=== PATIENT | female | born 1980 | race African-American/Black ===

== ENCOUNTER 2025-05-23 12:43 | Outpatient (CLI) | payer BC, SELFPAY ==
--- OUTSIDE RECORDS SUMMARY | 2025-05-23 12:48 | XMS_ITS | Encounter Summary ---
Author Organization Healthcare Address [address] [place] [address] Care Team Providers Care Machine Setter Supervisor Name Role Phone Mynor Rangel MD Primary Care Provider [phone] Pcp, No Primary Care Provider Ekaterina Donovan APRN Primary Care Provider [phone] Encounter Details Date Type Department Care Team (Late st Contact Info) Description 09/25/2020 Orders Only External Location [address] [place] [phone] Provider, External Social History Tobacco Use Types Packs/Day Years Used Date Smoking Tobacco: Every Day Alcohol Use Standard Drinks/Week Comments Yes 0 (1 standard drink = 0.6 oz pur e alcohol) Comments Unknown Sex and Gender Information Value Date Recorded Sex Assigned at Not on file Legal Sex Female 6:25 PM EDT Gender Identity Not on file Sexual Orientation Not on file documented as of this encounter Plan of Treatment Upcoming Encounters Date Type Department Care Team (Late st Contact Info) Description 06/04/2025 11:15 AM EDT Appointment [facility] [address] [address] documented as of this encounter Procedures Procedure Name Priority Date/Time Associated Diagnosis Comments MAMMOGRAPHY OUTSIDE IMAGES UPLOAD 09/25/2020 5:20 PM EST documented in this encounter Results * Mammography Outside Images Upload (09/25/2020 5:20 PM EST) Anatomical Region Laterality Modality Mammography 09/25/2020 5:20 PM EST us External Provider IMG BI PROCEDURES Final Result documented in this encounter Visit Diagnoses Not on filedocumented in this encounter Care Teams Machine Setter Supervisor Relationship Specialty Start Date End Date Mynor Rangel MD [address] [place] [address] PCP - General 01/03/21 11/29/[address] [place] [address] PCP - General Family Medicine 11/30/23 12/07/23 Ekaterina William APRN [address] [place] [phone] PCP - General Family Medicine 12/08/23 documented as of this encounter
--- OUTSIDE RECORDS SUMMARY | 2025-05-23 12:49 | XMS_ITS | Encounter Summary ---
Author Organization Healthcare Address [address] [place] [address] Care Team Providers Care Materials Planning Analyst Name Role Phone Mynor Rangel MD Primary Care Provider [phone] Pcp, No Primary Care Provider Ekaterina Donovan APRN Primary Care Provider [phone] Encounter Details Date Type Department Care Team (Late st Contact Info) Description 12/02/2022 Orders Only External Location [address] [place] [phone] Provider, External Social History Tobacco Use Types Packs/Day Years Used Date Smoking Tobacco: Every Day Smokeless Tobacco: Never Alcohol Use Standard Drinks/Week Comments Yes 0 [...] Info) Description 06/04/2025 11:15 AM EDT Appointment [facility] [address] [address] documented as of this encounter Procedures Procedure Name Priority Date/Time Associated Diagnosis Comments US BREAST OUTSIDE IMAGES 12/02/2022 1:54 PM EDT documented in this encounter Results * US BREAST OUTSIDE IMAGES (12/02/2022 1:54 PM EDT) Anatomical Region Laterality Modality Breast Mammography 12/02/2022 1:54 PM EDT us External Provider IMG BI PROCEDURES Final Result documented in this encounter Visit Diagnoses Not on filedocumented in this encounter Care Teams Materials Planning Analyst Relationship Specialty Start Date End Date Mynor Rangel MD [address] [place] [address] PCP - General 01/03/21 11/29/[address] [address] PCP - General Family Medicine 11/30/23 12/07/23 Ekaterina William APRN [address] [place] [phone] PCP - General Family Medicine 12/08/23 documented as of this encounter
--- OUTSIDE RECORDS SUMMARY | 2025-05-23 12:49 | XMS_ITS | Encounter Summary ---
Author Organization Healthcare Address [address] [place] [address] Care Team Providers Care Jewelry Making Instructor Name Role Phone Mynor Rangel MD Primary Care Provider [phone] Pcp, No Primary Care Provider Ekaterina Donovan APRN Primary Care Provider [phone] Encounter Details Date Type Department Care Team (Late st Contact Info) Description 12/02/2022 Orders Only External Location [address] [place] [phone] Provider, External Social History Tobacco Use Types [...] Info) Description 06/04/2025 11:15 AM EDT Appointment [facility] [address] [address] documented as of this encounter Procedures Procedure Name Priority Date/Time Associated Diagnosis Comments MAMMOGRAPHY OUTSIDE IMAGES UPLOAD 12/02/2022 2:30 PM EDT documented in this encounter Results * Mammography Outside Images Upload (12/02/2022 2:30 PM EDT) Anatomical Region Laterality Modality Mammography 12/02/2022 2:30 PM EDT us External Provider IMG BI PROCEDURES Final Result documented in this encounter Visit Diagnoses Not on filedocumented in this encounter Care Teams Jewelry Making Instructor Relationship Specialty Start Date End Date Mynor Rangel MD [address] [place] [address] PCP - General 01/03/21 11/29/[address] [place] [address] PCP - General Family Medicine 11/30/23 12/07/23 Ekaterina William APRN [address] [place] [phone] PCP - General Family Medicine 12/08/23 documented as of this encounter
--- OUTSIDE RECORDS SUMMARY | 2025-05-23 12:49 | XMS_ITS | Clinical Summary ---
Author Organization [facility] Address [address] [place] [address] Care Team Providers Care Production Machine Shop Supervisor Name Role Phone Ekaterina William APRN Primary Care Provider [phone] Allergies No known active allergies Medications * This document contains information received from the source organization and may not represent a complete record from that organization. Multiple Vitamin (multivitamin) capsule Take 1 capsule by mouth in the morning. Active BLACK CURRANT SEED OIL PO Take by mouth. 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 Got a ultrasound/mammogram/biopsy. Biopsy revealed fibroadenoma of left breast. Patient comes to clinic to reestablish care and discuss options regarding fibroadenoma. Patient states that it most bothers her during her period. She is reassured that this is due to hormone response of fibroadenoma. Patient is advised to get ultrasound/mammogram every 6 months. Patient agrees to plan and ultrasound/mammogram is scheduled for May (last ultrasound/mammogram in November in [place]). Patient is advised that if mass continues to bother her that she would be able to get a referral to a breast surgeon for removal. Patient is not interested at this time but is aware of this option. Encounter for gynecological examination with abnormal finding 11/03/2021 Assessment & Plan (11/03/2021 5:15 PM EDT): - pap today - declines contraception - left breast mass palpated - likely benign - diagnostic mammogram and breast US ordered - discussed reasons for breast pain - improperly fitted bra, caffeine. Discussed that primrose oil can be beneficial for breast pain Anxiety 08/20/2015 Resolved Problems Problem Noted Date Diagnosed Date Resolved Date Breast mass in female 11/03/20212023 Assessment & Plan (11/03/2021 5:15 PM EDT): - likely benign - breast US and diagnostic mammogram ordered Encounters Date Type Department Care Team Description 03/26/2025 Orders Only Obstetrics & Gynecology [address] [place] [address] Nita Diallo MD Breast asymmetry (Primary Dx) from Last 3 Months Immunizations Immunization Administration Dates Next Due Influenza, Unspecified 07/31/2019 Influenza, seasonal, injectable 08/31/2012 Tdap 07/31/2019 Family History Medical History Relation Name Comments Hypertension Father Relation Name Status Comments Father Social History Tobacco Use Types Packs/Day Years Used Date Smoking Tobacco: Never Smokeless Tobacco: Never Alcohol Use Standard Drinks/Week Comments Yes 0 (1 standard drink = 0.6 oz pur e alcohol) Humiliation, Afraid, Rape, and Kick questionnair e Answer Date Recorded Within the last year, have y ou been afraid of your partner or ex-partner? No 12/08/2023 Within the last year, have y ou been humiliated or emotionally abused in other ways by your partner or ex-partner? No Within the last year, have y ou been kicked, hit, slapped, or otherwise physically hurt by your partner or ex-partner? No 12/08/2023 Within the last year, have y ou been raped or forced to have any kind of sexual activity by your partner or ex-partner? No 12/08/2023 PHQ-2 Answer Date Recorded Patient Health Questionnaire-2 Score 0 12/08/2023 Hunger Vital Sign Answer Date Recorded Within the past 12 months, y ou worried that your food would run out before you got the money to buy more. Never true 12/08/19 24 Within the past 12 months, t he food you bought just didn't last and you didn't have money to get more. Never true 12/08/2023 PRAPARE - Transportation Answer Date Re corded In the past 12 months, has l ack of transportation kept you from medical appointments or from getting medications? No 11/21 In the past 12 months, has l ack of transportation kept you from meetings, work, or from getting things needed for daily living? No 12/08/2023 Housing Stability Vital Sign Answer Guy e Recorded In the last 12 months, was t here a time when you were not able to pay the mortgage or rent on time? No 12/08/2023 In the last 12 months, how many places have you lived? 1 12/08/2023 In the last 12 months, was t here a time when you did not have a steady place to sleep or slept in a penitentiary (including now)? No 12/08/2023 Safety and Environment Answer Date Greyson rded Do you worry that your child may have been physically abused? Did not ask 12/08/2023 Do you worry that your child may have been sexua lly abused? Did not ask 12/08/2023 Are there any guns kept in o r around your home or where your child spends time? Did not ask 12/08/2023 Guns Unloaded or Locked Away Not on file Utilities Answer Date Recorded In the past 12 months has th e electric, gas, oil, or water company threatened to shut off services in your home? No 12/08/2023 Comments No Sex and Gender Information Value Date Recorded Sex Assigned at Not on file Legal Sex Female 6:25 PM EDT Gender Identity Not on file Sexual Orientation Not on file Last Filed Vital Signs Vital Sign Reading Time Taken Comments Blood Pressure 104/85 10/30/2024 11:25 AM EDT Pulse 69 10/30/2024 11:25 AM EDT Temperature 36.3 C (97.3 F) 10/30/2024 10:45 AM EDT Respiratory Rate 16 10/30/2024 11:2 5 AM EDT Oxygen Saturation 99% 10/30/2024 11: 25 AM EDT Inhaled Oxygen Concentration - - Weight 58.8 kg (129 lb 10.1 oz) 10/30/2024 9:07 AM EDT Height 170.2 cm (5' 7 ) 10/30/2024 9:07 AM EDT Body Mass Index 20.3 10/30/2024 9:07 AM EDT Plan of Treatment Upcoming Encounters Date Type Department Care Team (Late st Contact Info) Description 06/04/2025 11:15 AM EDT Appointment [facility] [address] [phone] Health Maintenance Due Date Last Done Comments [facility]-Infant/Child/Adol SDOH Screenings 1979 [facility]- SDOH Screenings 1997 [facility]-Adult SDOH Screenings 1997 [facility]-Hepatitis B Vaccines (1 of 3 - 19+ 3-dose series) 1998 [facility]-Pneumococcal Vaccine: Pediatrics (0 to 5 Years) and At-Risk Patients (6 to 49 Years) (1 of 2 - PCV) 1998 [facility]-Zoster Vaccines (1 of 2) 1998 CT Colonography 2024 FIT-DNA 2024 FIT 2024 FOBT 2024 Sigmoidoscopy 2024 [facility]-Pap Smear 11/03/2024 11/03/2021 [facility]-Depression Screening 12/07/2024 12/08/2023 [id number] Vaccine ( season) 2025 06/18/2023, 12/08/2020, 11/16/2020 [facility]-Influenza Vaccine (#1) 04/23/202508/31, 06/18/2023, 06/09/2022, Additional history exists [facility]-Cervical Cancer Screening 11/03/2026 [facility]-HPV/Cotest 11/03/2026 11/03/2021, 11/03/2021 [facility]-DTaP,Tdap,and Td Vaccines (2 - Td or Tdap) 07/31/2029 07/31/2019 Colonoscopy 10/30/2034 10/30/2024 [facility]-Colorectal Cancer Screening 10/30/2034 [facility]-HIV Screening Completed 12/08/2023 [facility]-Hepatitis C Screening Completed 12/08/2023 HPV Vaccines Aged Out No longer eligi ble based on patient's age to complete this topic [facility]-HIB Vaccines Aged Out No longer e ligible based on patient's age to complete this topic [facility]-Hepatitis A Vaccines Aged Out No longer eligible based on patient's age to complete this topic [facility]-IPV Vaccines Aged Out No longer e ligible based on patient's age to complete this topic [facility]-Rotavirus Vaccines Aged Out No lo nger eligible based on patient's age to complete this topic Procedures Procedure Name Priority Date/Time Associated Diagnosis Comments COLONOSCOPY Routine 10/30/2024 10:45 AM EDT Encounter for screening for malignant neoplasm of colon HEPATITIS C ANTIBODY W/REFLEX TO HCV QUANT PCR Routine 12/08/2023 4:20 PM EDT Need for hepatitis C screening test HIV 1/2 ANTIBODY/ANTIGEN SCREEN WITH REFLEX TO HIV I/II DIFFERENTIATION Routine 12/08/2023 4:20 PM EDT Screening for human immunodeficiency virus PAP TEST - CYTOLOGY Routine 11/03/2021 1 1:04 AM EDT Encounter for gynecological examination without abnormal finding from Last 3 Months or Most Recently Relevant to Health Maintenance Results * Colonoscopy (10/30/2024 10:45 AM EDT) Anatomical Region Laterality Modality Endoscopy Narrative 10/30/2024 12:21 PM EDT Table formatting from the original result was not included. Impression: Two subcentimer polyps in the ascending colon, resected and retrieved. The entire remaining colon appeared normal. Post Procedure Diagnosis Colon polyps Recommendations - Return home once discharge criteria met. - May resume previous diet. - Await pathology results. - Repeat colonoscopy in 7 years pending path results. - Return to referring provider. - Discussed results with patient/family. Indication Order Indication: Encounter for screening for malignant neoplasm of colon Medications See anesthesia record for anesthesia administered medications. Staff Staff Role Ermelinda Batista CRNA, DNP MANAGEMENT NURSE RN Nisreen Spear MD Proceduralist Benny Krishnan Endo Health Care Analyst Tonya Carey MD Fellow Sheryl Granda RN Endo Nurse Dusty Whitney MD Anesthesiologist Preprocedure A history and physical has been performed, and patient medication allergies have been reviewed. The patient's tolerance of previous anesthesia has been reviewed. The risks and benefits of the procedure and the sedation options and risks were discussed with the patient. All questions were answered and informed consent obtained. Details of the Procedure The patient underwent monitored anesthesia care, which was administered by an anesthesia professional. The patient's blood pressure, heart rate, level of consciousness, respirations and oxygen were monitored throughout the procedure. A digital rectal exam was performed. A perianal exam was performed. The scope was introduced through the anus and advanced to the cecum. Retroflexion was performed in the rectum. Retroflexion was not performed due to narrow vault. The quality of bowel preparation was evaluated using the [place] Bowel Preparation Scale with scores of: right colon = 2, transverse colon = 3, left colon = 2. The total BBPS score was 7. Bowel prep was adequate. The patient experienced no blood loss. The procedure was not difficult. The patient tolerated the procedure well. There were no apparent adverse events. Attestation I was present for the entire procedure Events Procedure Events Event Event Time ENDO SCOPE IN TIME 10/30/2024 9:59 AM ENDO CECUM REACHED 10/30/2024 10:21 AM ENDO SCOPE OUT TIME 10/30/2024 10:43 AM Specimens ID Type Source Tests Collected by Time A : colon polyps bx Tissue Ascending Colon SURGICAL PATHOLOGY EXAM Nisreen Spear MD 10/30/2024 1025 Findings Two sessile polyps measuring smaller than 5 mm in the ascending colon; no bleeding was observed; performed cold forceps biopsy with complete en bloc removal The cecum, transverse colon, descending colon, rectosigmoid and rectum appeared normal. No retroflexion was performed in the rectum due to a narrow rectal vault. Ekaterina Clarke Stewart [facility] GI PROCEDURE ORDERABLES Final R esult * HIV 1 & 2 Antibody/Antigen Screen (12/08/2023 4:20 PM EDT) Pathologist [facility] HIV 1 & 2 Antibody/Antigen Screen Non Reactive Non Reactive 12/08/2023 7:03 PM EDT [facility] Comment:Screening for HIV 1 & 2 antibodies, and P24 antigen is NONREACTIVE. No confirmatory testing is required. Blood Venous blood specimen / Unknown Venipuncture / Unknown 12/08/2023 4:20 PM EDT 12/08/2023 4:20 PM EDT Ekaterina Clarke Stewart PERSONNEL CLERK LAB BLOOD ORDERABLES Final Resu lt Performing Organization Address City/[facility]/ZIP Co de Phone Number [facility] [address] [place] [address] * Hepatitis C Antibody w/Reflex to HCV Quant PCR (12/08/2023 4:20 PM EDT) [facility] Hepatitis C Antibody Negative Negative 12/08/2023 7:03 PM EDT [facility] Blood Venous blood specimen / Unknown Venipuncture / Unknown 12/08/2023 4:20 PM EDT 12/08/2023 4:20 PM EDT Ekaterina Alanizo PERSONNEL CLERK LAB BLOOD ORDERABLES Final Resu lt Performing Organization Address City/[facility]/ZIP Co de Phone Number [facility] [address] [place] [address] * Pap Smear (11/03/2021 11:04 AM EDT) [facility] Case Report Cytology Case: [id number] Authorizing Provider: Nita Diallo MD Collected: 11/03/2021 1104 Ordering Location: Obstetrics & Gynecology Received: 11/04/2021 0852 First Screen: SALMA Perez Specimen: ThinPrep Pap Test, Liquid-Based Cervical/Vaginal 11/11/2021 2:09 PM EDT [facility] Interpretation NEGATIVE FOR INTRAEPITHELIAL LESION OR MALIGNANCY 11/11/2021 2:09 PM EDT [facility] at 1409 EDT Specimen Adequacy Satisfactory for evaluation; endocervical/mancuso sformation zone component present. Slide imaged by the ThinPrep Imaging system and selected 22 stauffer reviewed then full manual screening. 11/11/2021 2:09 PM EDT [facility] Cervical cytology is a screening test primarily for squamous cancers and precursors and has associated false negative and positive results. New technologies such as liquid based sampling may decrease but will not eliminate all false negative results. Regular screening and follow-up of unexplained clinical signs and symptoms are recommended to minimize false negative results. Please see the ASCCP website (www.asccp.org)fo r followup recommendations. If HPV testing was requested, correlation with the results is suggested (please call Microbiology at [phone] for results). 11/11/2021 2:09 PM EDT [facility] Menstrual Status Cyclic 11/12/19 2:09 PM EDT [facility] History of Hysterectomy Not Applicable 11/11/2021 2:09 PM EDT [facility] Contraceptive History Not Applicable 11/11/2021 2:09 PM EDT [facility] Screening Type Routine Screen 2021 2:09 PM EDT [facility] High Risk? No 11/11/2021 2:09 PM EDT [facility] HPV Testing Requested? Request HPV Testing Regardless of Pap Test Findings 11/11/2021 2:09 PM EDT [facility] Previous Cancer History No 11/11/2021 2:09 PM EDT [facility] Clinical Information Z01.419 - Encounter for gynecological examination without abnormal finding [ICD-10-CM] 11/11/2021 2:09 PM EDT [facility] Last Menstrual Period [id number] 11/11/2021 2:09 PM EDT [facility] Swab Vaginal and cervical cytologic material / Unknown Non-blood Collection / Unknown 11/03/2021 11:04 AM EDT 11/04/2021 8:52 AM EDT us Nita Diallo MD LAB CYTOLOGY ORDERABLES Final Result [facility] [address] [place] [phone] from Last 3 Months or Most Recently Relevant to Health Maintenance Insurance [employer] Care Teams Production Machine Shop Supervisor Relationship Specialty Start Date End Date Ekaterina William, PERSONNEL CLERK [address] [place] [address] PCP - General Family Medicine 12/08/23
--- OUTSIDE RECORDS SUMMARY | 2025-05-23 12:49 | XMS_ITS | Encounter Summary ---
Author Organization Healthcare Address [address] [place] [address] Care Team Providers Care Garage Mechanic Name Role Phone Mynor Rangel MD Primary Care Provider [phone] Pcp, No Primary Care Provider Ekaterina Donovan APRN Primary Care Provider [phone] Encounter Details Date Type Department Care Team (Late st Contact Info) Description 12/02/2022 Orders Only External Location [address] [place] [id number] Provider, External Social History Tobacco Use Types [...] [facility] [address] [phone] documented as of this encounter Procedures Procedure Name Priority Date/Time Associated Diagnosis Comments US BREAST OUTSIDE IMAGES 12/02/2022 9:24 AM EDT documented in this encounter Results * US BREAST OUTSIDE IMAGES (12/02/2022 9:24 AM EDT) Anatomical Region Laterality Modality Breast Mammography 12/02/2022 9:24 AM EDT us External Provider IMG BI PROCEDURES Final Result documented in this encounter Visit Diagnoses Not on filedocumented in this encounter Care Teams Garage Mechanic Relationship Specialty Start Date End Date Mynor Rangel MD [address] [place] [address] PCP - General 01/03/21 11/29/[address] [place] [address] PCP - General Family Medicine 11/30/23 12/07/23 Ekaterina William APRN [address] [place] [phone] PCP - General Family Medicine 12/08/23 documented as of this encounter
--- OUTSIDE RECORDS SUMMARY | 2025-05-23 12:49 | XMS_ITS | Encounter Summary ---
Author Organization Healthcare Address [address] [place] [address] Care Team Providers Care Glass Sagger Name Role Phone [place] rom[place] Vince GONSALVES Primary Care Provider [phone] Encounter Details Date Type Department Care Team (Late st Contact Info) Description 03/26/2025 Orders Only Obstetrics & Gynecology [address] [place] [address] Nita Diallo MD [address] [place] [address] Breast asymmetry (Primary Dx) Social History Tobacco Use Types Packs/Day Years [...] place to sleep or slept in a fpc (including now)? No 12/08/2023 Safety and Environment [...] [facility] [address] [place] [address] Scheduled Orders Name Type Priority Associated Diagnoses Orde r Schedule US Breast Limited Left Imaging Routine Breast asymmetry Expected: 04/26/2025 (Approximate), Expires: 09/27/2026 documented as of this encounter Visit Diagnoses Diagnosis Breast asymmetry- Primary documented in this encounter Additional Health Concerns Assessment Noted Time A Body Mass Index follow-up plan has been documented for the patient 12/08/2023 4:44 PM EDT documented as of this encounter Care Teams Glass Sagger Relationship Specialty Start Date End Date Ekaterina William APRN [address] [place] [address] PCP - General Family Medicine 12/08/23 documented as of this encounter
--- OUTSIDE RECORDS SUMMARY | 2025-05-23 12:49 | XMS_ITS | Encounter Summary ---
Author Organization Healthcare Address [address] [place] [address] Care Team Providers Care Compliance Program Manager Name Role Phone Mynor Rangel MD Primary Care Provider [phone] Pcp, No Primary Care Provider Ekaterina Donovan APRN Primary Care Provider [phone] Encounter Details Date Type Department Care Team (Late st Contact Info) Description 11/18/2022 Orders Only External Location [address] [place] [phone] Provider, External Social History Tobacco Use Types [...] Info) Description 06/04/2025 11:15 AM EDT Appointment [facility] [address] [phone] documented as of this encounter Procedures Procedure Name Priority Date/Time Associated Diagnosis Comments MAMMOGRAPHY OUTSIDE IMAGES UPLOAD 11/18/2022 10:20 AM EDT documented in this encounter Results * Mammography Outside Images Upload (11/18/2022 10:20 AM EDT) Anatomical Region Laterality Modality Mammography 11/18/2022 10:2 0 AM EDT us External Provider IMG BI PROCEDURES Final Result documented in this encounter Visit Diagnoses Not on filedocumented in this encounter Care Teams Compliance Program Manager Relationship Specialty Start Date End Date Mynor Rangel MD [address] [place] [address] PCP - General 01/03/21 11/29/23 Pcp, Diana [address] [place] [address] PCP - General Family Medicine 11/30/23 12/07/23 Ekaterina William APRN [address] [place] [phone] PCP - General Family Medicine 12/08/23 documented as of this encounter
--- NOTE | 2025-05-23 13:11 | XR_ITS ---
FINAL REPORT CLINICAL HISTORY: evaluate right ankle pain COMPARISON: None FINDINGS: RIGHT ANKLE 3 views of the right ankle were obtained. There is no acute fracture or dislocation. The mortise is intact. Visualized joint spaces are normally aligned. Soft tissues are unremarkable. IMPRESSION: No acute bony abnormality. Reviewed, Interpreted and Dictated by Kit Aguila MD Transcribed by Nan Badillo Authenticated and [facility]
--- NOTE | 2025-05-23 13:11 | XR_ITS ---
FINAL REPORT CLINICAL HISTORY: evaluate left foot pain COMPARISON: None FINDINGS: LEFT FOOT Two views of the left foot demonstrate no acute fracture or dislocation. The visualized joint spaces are normally aligned. The soft tissues are unremarkable. IMPRESSION: No acute bony abnormality. Reviewed, Interpreted and Dictated by Kit Aguila MD Transcribed by Nan Badillo Authenticated and [facility]
--- NOTE | 2025-05-23 13:11 | XR_ITS ---
FINAL REPORT CLINICAL HISTORY: evaluate ankle pain COMPARISON: None FINDINGS: LEFT ANKLE Three views demonstrate no acute fracture or dislocation. The visualized joint spaces are normally aligned. The soft tissues are unremarkable. IMPRESSION: No acute bony abnormality. Reviewed, Interpreted and Dictated by Kit Aguila MD Transcribed by Nan Badillo Authenticated and [facility]
--- NOTE | 2025-05-23 13:11 | XR_ITS ---
FINAL REPORT CLINICAL HISTORY: evaluate right foot pain COMPARISON: None FINDINGS: RIGHT FOOT 3 views of the right foot were obtained. There is no acute fracture or dislocation. Visualized joint spaces are normally aligned. Soft tissues are unremarkable. IMPRESSION: No acute bony abnormality. Reviewed, Interpreted and Dictated by Kit Aguila MD Transcribed by Nan Badillo Authenticated and [facility]
== END 2025-05-23 23:59 | disposition home or self-care (01) ==
LOC: RAD 12:47
PROVIDERS: PCP Nurse Practitioner Family; Visit Provider Podiatrist
DX: M25.571 Pain in right ankle and joints of right foot (principal); M25.371 Other instability, right ankle; M25.572 Pain in left ankle and joints of left foot; M25.372 Other instability, left ankle; M79.671 Pain in right foot; M79.672 Pain in left foot; M20.41 Other hammer toe(s) (acquired), right foot; M20.42 Other hammer toe(s) (acquired), left foot
CPT/HCPCS: 73610; 73630